=== PATIENT | female | born 1940 | race Caucasian/White ===

== ENCOUNTER → 2017-03-05 | Outpatient (CLI) | payer OTHER, MEDICAID | LOC: BRMIMAGING 14:03 | PROVIDERS: ATTEND Registered Nurse | DX: Z12.31 Encounter for screening mammogram for malignant neoplasm of breast (principal) | CPT/HCPCS: G0202 ==

== ENCOUNTER → 2017-08-24 | Outpatient (CLI) | payer OTHER, MEDICAID | LOC: BRMIMAGING 15:54 | PROVIDERS: ATTEND Registered Nurse | DX: M19.031 Primary osteoarthritis, right wrist (principal) | CPT/HCPCS: 73110-PO ==

== ENCOUNTER → 2018-05-30 | Outpatient (CLI) | payer OTHER, MEDICAID | LOC: BRMIMAGING 14:27 | PROVIDERS: ATTEND Registered Nurse | DX: Z12.31 Encounter for screening mammogram for malignant neoplasm of breast (principal) ==